=== PATIENT | female | born 2000 | race Caucasian/White ===

== ENCOUNTER 2024-05-25 14:16 | Emergency (ER) | payer SELFPAY ==
[~2024-05-25] VITALS: Ht 157.5 cm; Wt 59.0 kg
[2024-05-25 14:22] VITALS: BP 107/61; PULSE 89; RESP 16; TEMP 98.7; O2SAT 100
[2024-05-25] MEDS: LIDOCAINE HCL 1% 20ML VIAL INFIL ONE (14:45)
== END 2024-05-25 16:45 | disposition home or self-care (01) ==
LOC: ER 14:54
DX: S01.81XA Laceration without foreign body of other part of head, initial encounter (principal); Y04.0XXA Assault by unarmed brawl or fight, initial encounter; Y93.89 Activity, other specified; Y92.89 Other specified places as the place of occurrence of the external cause; Y99.8 Other external cause status
CPT/HCPCS: 12011; 99282; J3490; Z7610 ×2